=== PATIENT | male | born 1965 | race African-American/Black ===

== ENCOUNTER 2023-08-08 00:42 | Inpatient (IN) | payer OTHER ==
[~2023-08-08] VITALS: Ht 170.2 cm; Wt 93.4 kg
[2023-08-08] MEDS ORDERED: DIPHENOXYLATE HCL/ATROP SULF 5 ML UDC PO PRN (01:00)
[2023-08-08] MEDS ORDERED: ONDANSETRON HCL/PF 4 MG/2 ML VIAL ONE (01:16)
[2023-08-08] MEDS ORDERED: DIPHENOXYLATE HCL/ATROP SULF 1 UDTAB TABLET ONE (01:23)
[2023-08-08] MEDS: DIPHENOXYLATE HCL/ATROP SULF 1 UDTAB TABLET PO ONE (01:45)
[2023-08-08] MEDS: ONDANSETRON HCL/PF - ER 4 MG/2 ML VIAL IV ONE (01:45)
[2023-08-08 01:46] LABS: BASOPHILS % (AUTO) 0.2 % (0.0-2.0); EOSINOPHILS # (AUTO) 0.1 K/uL (0.0-0.7); EOSINOPHILS % (AUTO) 1.3 % (0.0-6.0); HEMATOCRIT 47 % (39-51); HEMOGLOBIN 15.9 g/dL (13.5-17.5); LYMPHOCYTES # (AUTO) 1.6 K/uL (0.8-4.8); LYMPHOCYTES % (AUTO) 17.1 % (20.0-44.0); MEAN CORPUSCULAR HEMOGLOBIN 32 PG (26.0-33.0); MEAN CORPUSCULAR HGB CONC 34 g/dl (31.0-36.0); MEAN CORPUSCULAR VOLUME 95 fL (80-96); MONOCYTES # (AUTO) 0.6 K/uL (0.1-1.30); MONOCYTES % (AUTO) 6.3 % (2.0-12.0); NEUTROPHILS % (AUTO) 75.1 % (43.0-81.0); PLATELET COUNT (AUTO) 211 K/uL (150-450); RED BLOOD CELL COUNT(AUTO) 4.91 MIL/uL (4.5-6.0); RED CELL DISTRIBUTION WIDTH 14.3 % (11.5-15.0); WHITE BLOOD COUNT (AUTO) 9.3 K/uL (4.3-11.0)
[2023-08-08 02:06] LABS: LACTIC ACID 1.1 mmol/L (0.4-2.0)
[2023-08-08 02:13] LABS: ALBUMIN 4.2 g/dL (3.4-5.0); BILIRUBIN,TOTAL 0.8 mg/dL (0.2-1.0); CREATININE 1.4 mg/dL (0.6-1.3); POTASSIUM 4.2 mmol/L (3.5-5.1); TOTAL PROTEIN, SERUM 8.1 g/dL (6.4-8.2)
[2023-08-08 02:52] LABS: APPEARANCE,URINE CLEAR (CLEAR); BILIRUBIN,URINE 1+ (NEGATIVE); BLOOD, URINE NEGATIVE Ery/uL (NEGATIVE); COLOR,URINE YELLOW (YELLOW); KETONES,URINE TRACE mg/dL (NEGATIVE); LEUKOCYTE ESTERASE ,URINE NEGATIVE (NEGATIVE); NITRITE, URINE NEGATIVE (NEGATIVE); PROTEIN,URINE 1+ mg/dl (NEGATIVE); UGLUCOSE NEGATIVE (NEGATIVE)
[2023-08-08] MEDS ORDERED: PIPERACI/TAZO 3.375GM/D5W 50ML PB IV ONE (05:16)
[2023-08-08] MEDS: PIPERACILLIN /TAZOBACTAM 3.375 G in IV D5W 50 ML IV ONE (05:21)
[2023-08-08] MEDS ORDERED: Z GUARD REMEDY 4 OZ OINT TP PRN (05:30)
[2023-08-08] MEDS ORDERED: ONDANSETRON HCL/PF 4 MG/2 ML VIAL IVP PRN (05:30)
[2023-08-08] MEDS ORDERED: MAG HYDROX/AL HYDROX/SIMETH 30 ML UDC PO PRN (05:30)
[2023-08-08] MEDS ORDERED: MORPHINE SULFATE INJ 2 MG/ML DISP.SYRIN IV SCH (05:30)
[2023-08-08] MEDS ORDERED: ACETAMINOPHEN 325 MG TABLET PO PRN (05:30)
[2023-08-08] MEDS ORDERED: PIPERACILLIN /TAZOBACTAM 3.375 G in IV D5W 50 ML IV SCH (05:30)
[2023-08-08] MEDS ORDERED: MAGNESIUM HYDROXIDE 30 ML UDC PO PRN (05:30)
[2023-08-08] MEDS ORDERED: ATOR40TA PO (08:52)
[2023-08-08] MEDS ORDERED: LOSA25TA27 PO (08:52)
[2023-08-08] MEDS ORDERED: PANT40TA49 PO (08:52)
[2023-08-08] MEDS ORDERED: ALBU90AE2 IH (08:52)
[2023-08-08] MEDS ORDERED: CARV3.122 PO (08:52)
[2023-08-08] MEDS ORDERED: ASPI-1169 PO (08:52)
[2023-08-08] MEDS ORDERED: PANTOPRAZOLE 40 MG VIAL ONE (09:15)
[2023-08-08] MEDS: PANTOPRAZOLE 40 MG VIAL IV SCH (09:40)
[2023-08-08 10:30] VITALS: BP 113/78; TEMP 98; O2SAT 97
[2023-08-08] MEDS: PIPERACILLIN /TAZOBACTAM 3.375 G in IV D5W 100 ML IV SCH (10:32)
[2023-08-08] MEDS: IV NS 0.9% 1,000 ML IV PRN (10:32)
[2023-08-08] MEDS ORDERED: IOHEXOL-350 100 ML VIAL IV ONE (10:38)
[2023-08-08] MEDS ORDERED: CT SWABBABLE VALVE TRANS SET 1 EA INFUS.SET MC ONE (10:39)
[2023-08-08] MEDS ORDERED: IV NS 0.9% 250 ML IV ONE (10:39)
[2023-08-08 16:00] VITALS: BP 124/78; TEMP 98.6; O2SAT 96
[2023-08-08 22:48] VITALS: BP 110/80; TEMP 98.1; O2SAT 100
[2023-08-09] VITALS: BP 121/78; TEMP 97.9; O2SAT 96
[2023-08-09 04:00] VITALS: BP 114/66; TEMP 98.3; O2SAT 98
[2023-08-09 06:58] LABS: BASOPHILS % (AUTO) 0.1 % (0.0-2.0); EOSINOPHILS # (AUTO) 0.2 K/uL (0.0-0.7); EOSINOPHILS % (AUTO) 2.2 % (0.0-6.0); HEMATOCRIT 44 % (39-51); HEMOGLOBIN 14.7 g/dL (13.5-17.5); LYMPHOCYTES # (AUTO) 1.7 K/uL (0.8-4.8); LYMPHOCYTES % (AUTO) 18.8 % (20.0-44.0); MEAN CORPUSCULAR HEMOGLOBIN 32 PG (26.0-33.0); MEAN CORPUSCULAR HGB CONC 34 g/dl (31.0-36.0); MEAN CORPUSCULAR VOLUME 96 fL (80-96); MONOCYTES # (AUTO) 0.8 K/uL (0.1-1.30); MONOCYTES % (AUTO) 8.2 % (2.0-12.0); NEUTROPHILS # (AUTO) 6.5 K/uL (1.8-8.9); NEUTROPHILS % (AUTO) 70.7 % (43.0-81.0); PLATELET COUNT (AUTO) 170 K/uL (150-450); RED BLOOD CELL COUNT(AUTO) 4.56 MIL/uL (4.5-6.0); RED CELL DISTRIBUTION WIDTH 14.1 % (11.5-15.0); WHITE BLOOD COUNT (AUTO) 9.3 K/uL (4.3-11.0)
[2023-08-09 07:13] LABS: CREATININE 1.4 mg/dL (0.6-1.3); PHOSPHORUS 2.8 mg/dL (2.5-4.9); POTASSIUM 3.3 mmol/L (3.5-5.1)
[2023-08-09 08:00] VITALS: BP 119/79; TEMP 97.7; O2SAT 95
[2023-08-09] MEDS: PANTOPRAZOLE 40 MG/PACK PACK PO SCH (08:34)
[2023-08-09] MEDS: POTASSIUM CHLORIDE 20 MEQ TAB.PRT.SR PO SCH (10:47)
[2023-08-09 12:00] VITALS: BP 139/87; TEMP 98.2; O2SAT 99
[2023-08-09 16:00] VITALS: BP 133/89; TEMP 97.7; O2SAT 99
[2023-08-09 16:38] LABS: URINE TOTAL PROTEIN 18.2 mg/dL (0-11.9)
[2023-08-09 20:00] VITALS: BP 134/85; TEMP 97.7; O2SAT 99
[2023-08-09] MEDS: PIPERACILLIN /TAZOBACTAM 3.375 G in IV D5W 100 ML IV SCH (21:23)
[2023-08-10] VITALS: BP 134/85; TEMP 97.7; O2SAT 99
[2023-08-10 04:00] VITALS: BP 128/76; TEMP 98; O2SAT 99
[2023-08-10 06:59] LABS: BASOPHILS % (AUTO) 0.3 % (0.0-2.0); EOSINOPHILS # (AUTO) 0.2 K/uL (0.0-0.7); HEMATOCRIT 40 % (39-51); HEMOGLOBIN 13.4 g/dL (13.5-17.5); LYMPHOCYTES # (AUTO) 1.7 K/uL (0.8-4.8); LYMPHOCYTES % (AUTO) 24.1 % (20.0-44.0); MEAN CORPUSCULAR HEMOGLOBIN 32 PG (26.0-33.0); MEAN CORPUSCULAR HGB CONC 34 g/dl (31.0-36.0); MEAN CORPUSCULAR VOLUME 95 fL (80-96); MONOCYTES # (AUTO) 0.6 K/uL (0.1-1.30); MONOCYTES % (AUTO) 7.8 % (2.0-12.0); NEUTROPHILS # (AUTO) 4.7 K/uL (1.8-8.9); NEUTROPHILS % (AUTO) 64.8 % (43.0-81.0); PLATELET COUNT (AUTO) 166 K/uL (150-450); RED BLOOD CELL COUNT(AUTO) 4.17 MIL/uL (4.5-6.0); RED CELL DISTRIBUTION WIDTH 13.8 % (11.5-15.0); WHITE BLOOD COUNT (AUTO) 7.3 K/uL (4.3-11.0)
[2023-08-10 07:19] LABS: BILIRUBIN,TOTAL 0.7 mg/dL (0.2-1.0); CALCIUM, SERUM 6.7 mg/dL (8.5-10.1); CREATININE 1.1 mg/dL (0.6-1.3); PHOSPHORUS 2.7 mg/dL (2.5-4.9); POTASSIUM 3.5 mmol/L (3.5-5.1)
[2023-08-10 08:00] VITALS: BP 142/96; TEMP 97.9; O2SAT 98
[2023-08-10] MEDS ORDERED: CIPR-262 PO ×2 (08:47→11:43)
[2023-08-10] MEDS ORDERED: METR500T PO ×2 (08:47→11:43)
[2023-08-10] MEDS: PANTOPRAZOLE 40 MG TABLET.DR PO SCH (08:52)
[2023-08-10] MEDS: CARVEDILOL 3.125 MG TABLET PO SCH (09:11)
[2023-08-10] MEDS: ASPIRIN 81 MG TAB.CHEW PO SCH (09:12)
[2023-08-10] MEDS: LOSARTAN POTASSIUM 25 MG TABLET PO SCH (09:12)
[2023-08-10 12:00] VITALS: BP 154/90; TEMP 97.6; O2SAT 99
[2023-08-10 16:00] VITALS: BP 131/85; TEMP 97.5; O2SAT 99
[2023-08-10] MEDS ORDERED: ATORVASTATIN 40 MG TABLET PO SCH (22:00)
[2023-08-12 12:09] LABS: PTH, INTACT 23 pg/mL (15-65)
[2023-08-14 09:12] LABS: *SPE A/G RATIO 1.2 (0.7-1.7); *SPE ALBUMIN 3.2 g/dL (2.9-4.4); *SPE ALPHA-1-GLOBULIN 0.2 g/dL (0.0-0.4); *SPE ALPHA-2-GLOBULIN 0.6 g/dL (0.4-1.0); *SPE BETA GLOBULIN 0.8 g/dL (0.7-1.3); *SPE GLOBULIN, TOTAL 2.6 g/dL (2.2-3.9); *SPE M-SPIKE 0.6 g/dL (Not Observed); *SPE PROTEIN TOTAL 5.8 g/dL (6.0-8.5)
== END 2023-08-10 16:32 | disposition home or self-care (01) | DRG 249 ==
LOC: ER 00:44 → TELE1 09:45
PROVIDERS: ADMIT Nurse Practitioner Acute Care; ATTEND Nurse Practitioner Acute Care
DX: A08.4 Viral intestinal infection, unspecified (principal); N17.0 Acute kidney failure with tubular necrosis; D68.69 Other thrombophilia; E87.20 Acidosis, unspecified; I50.22 Chronic systolic (congestive) heart failure; I13.0 Hypertensive heart and chronic kidney disease with heart failure and stage 1 through stage 4 chronic kidney disease, or unspecified chronic kidney disease; I5A Non-ischemic myocardial injury (non-traumatic); K66.8 Other specified disorders of peritoneum; I25.10 Atherosclerotic heart disease of native coronary artery without angina pectoris; E66.01 Morbid (severe) obesity due to excess calories; E78.5 Hyperlipidemia, unspecified; E86.1 Hypovolemia; E87.6 Hypokalemia; M89.8X9 Other specified disorders of bone, unspecified site; K63.89 Other specified diseases of intestine; Z68.32 Body mass index [BMI] 32.0-32.9, adult; E86.0 Dehydration; F10.21 Alcohol dependence, in remission; N18.9 Chronic kidney disease, unspecified; R79.89 Other specified abnormal findings of blood chemistry
CPT/HCPCS: 36415; 71045-TC; 76770-TC; 80048-TC; 80053-TC; 82550-TC; 82570-TC; 83605-TC; 83690-TC; 83735-TC; 83880; 83970; 84100-TC; 84155; 84165; 84300-TC; 84484-TC; 85025-TC; 87040-TC; 93307-TC; A4223; C9113; G0378; J2405; J2543; J7030; J7050; J7060; Q9967